=== PATIENT | female | born 1950 | race African-American/Black ===

== ENCOUNTER → 2020-09-22 | Day surgery (SDC) | payer OTHER, MEDICAID ==
[~2020-09-22] MED LIST: ACCUNEB SO1.25 MG/1 INH; AMITRIPTYLINE H25 M2 PO; APPLE CIDER VI300 MG PO; ASPIRIN325 PO; ATORVASTATIN CA20 MG PO; BIOTIN1 MG PO; CALCIUM500 MG PO; COUMADIN 2 MG TA2 M1 PO; COZAAR 25 MG TA25 M1 PO; DILTIAZEM 24HR120 M2; DILTIAZEM ER360 MG PO; DULCOLAX STOOL100 M1 PO; DULOXETINE HCL60 MG PO; FISH OIL 1,0001 EAC9 PO; FLONASE 0.05%50 MCG NARES; GLIPIZIDE 10 MG10 MG PO; HYDRALAZINE 5050 MG PO; JANUVIA100 MG PO; LANTUS SOL100 UNIT/1 SUBQ; LEVOXYL100 MCG PO; MAGNESIUM400 M1 PO; MELATONIN10 M3 PO; NEURONTIN 300M300 M2 PO; ONDANSETRON HCL4 M2 PO; QUINU10 PD; SENTRY SENIOR1 EAC1 PO; SEROQUEL200 MG PO; SEROQUEL400 MG PO; SINGULAIR 10 MG10 M1 PO; SLOW FE 160MG160 MG PO; SYMBICORT80 MCG/4.1 INH; TRAZODONE 150150 M1 PO; VITAMIN D350 MC3 PO; VITAMIN E400 UNI2 PO; [UNRECOGNIZED DRUG - OTHER]
--- NOTE | ~2020-09-22 | PROC ---
[address] [address] PROCEDURE REPORT Name: MATTHEW MCDONALD Room: [facility]#: [id number] Admission: 09/22/20 Attend Phys: Pawel Clay MD Discharge: Date of : 52 Report #: [id number] THIS REPORT FOR: cc: Physician not on staff Physician not on staff ~ [facility] [place],Medical Records Staff For GI report, please see the Provation report in Perceptive 7 content. By: [id number] Records Staff CHINMAY /JERI
[2020-09-22 09:45] LABS: HEMATOCRIT 37.4 % (37.0-47.0); HEMOGLOBIN 11.8 gm/dL (12.0-15.0); MCH 26.3 pg (26.0-34.0); MCHC 31.6 g/dL (28.0-37.0); MCV 83.4 fL (80.0-100.0); MPV 6.7 fl. (7.2-11.1); RBC 4.48 mil/uL (4.20-5.00); RDW-CV 15.2 % (10.5-14.5); WBC 8.4 thou/uL (4.0-11.0)
[2020-09-22 09:49] LABS: CALCIUM 8.6 mg/dL (8.5-10.1); CREATININE 0.8 mg/dL (0.6-1.3); POTASSIUM 3.2 mmol/L (3.5-5.1)
--- NOTE | 2020-09-22 12:53 | EKG ---
[place] [address] ELECTROCARDIOGRAM REPORT Name: MATTHEW MCDONALD Room: 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: : 1950 Requested By: Pawel Clay Order Number: [id number] [id number] MD: Oswaldo Nava Measurements Intervals [place] Rate: 85 P: 63 [place]: 166 QRS: -23 QRSD: 107 T: 89 QT: 397 QTc: 472 Interpretive Statements Sinus rhythm Abnormal R-wave progression, late transition LVH with secondary repolarization abnormality No previous ECG available for comparison Electronically Signed On 09-22-2020 12:52:57 CLINICAL FELLOW by Oswaldo Nava [email or web address] <ELECTRONICALLY SIGNED> By: Oswaldo Nava MD, [facility] 09/22/20 1252 Oswaldo Nava MD, [facility] /EPI
== END | disposition home or self-care (01) ==
LOC: M.SUR 06:21
PROVIDERS: ATTEND Internal Medicine Gastroenterology
DX: Z12.11 Encounter for screening for malignant neoplasm of colon (principal); R13.10 Dysphagia, unspecified; I10 Essential (primary) hypertension; E11.9 Type 2 diabetes mellitus without complications; E03.9 Hypothyroidism, unspecified; E78.00 Pure hypercholesterolemia, unspecified; K21.9 Gastro-esophageal reflux disease without esophagitis; G47.30 Sleep apnea, unspecified; F32.9 Major depressive disorder, single episode, unspecified; F41.9 Anxiety disorder, unspecified; Z98.890 Other specified postprocedural states; Z79.899 Other long term (current) drug therapy; Z90.49 Acquired absence of other specified parts of digestive tract; Z87.891 Personal history of nicotine dependence; Z87.19 Personal history of other diseases of the digestive system
CPT/HCPCS: 43248; G0121